=== PATIENT | female | born 1990 | race Caucasian/White ===

== ENCOUNTER 2016-12-14 17:25 | Emergency (ER) | payer MEDICAID ==
[2016-12-14 18:09] VITALS: BP 104/63
--- NOTE | 2016-12-14 18:23 | UC ---
Knee Pain HPI - HPI Summary HPI Summary: 26 yo female with progressively worsening right knee pain x 1 week no trauma feels swollen knee gives away now with right ankle pain - History of Current Complaint Chief Complaint: UCLowerExtremity Stated Complaint: RIGHT KNEE/ANKLE PAIN Time Seen by Provider: 12/14/16 18:15 Hx Last Menstrual Period: 11/22/16 Onset/Duration: Gradual Onset, Lasting Weeks - 1 Severity Initially: Mild Severity Currently: Moderate Pain Intensity: 6 Pain Scale Used: 0-10 Numeric Character: Dull, Aching Aggravating Factor(s): Movement, Weight Bearing Alleviating Factor(s): Rest Associated Signs And Symptoms: Positive: Swelling Able to Bear Weight: Yes - with marked limp - Risk Factors Septic Arthritis Risk Factor: Negative Gout Risk Factor: Negative - Allergies/Home Medications Allergies/Adverse Reactions: Allergies Allergy/AdvReac Type Severity Reaction Status Date / Time Morphine Allergy Intermediate Hives Verified 12/14/16 17:59 Home Medications: Home Medications Cyclobenzaprine TAB* [Flexeril 10 MG TAB*] 10 mg PO TID PRN 12/14/16 [History Confirmed 12/14/16] Ibuprofen TAB* [Motrin TAB* 800 MG] 800 mg PO Q8H PRN 12/14/16 [History Confirmed 12/14/16] PMH/Surg Hx/FS Hx/Imm Hx Previously Healthy: Yes - Surgical History Surgical History: None - Family History Known Family History: Positive: Hypertension - father, Diabetes - paternal side- uncle Negative: Cardiac Disease, Respiratory Disease - Social History Alcohol Use: None Alcohol Amount: 3 per weekend Substance Use Type: None Smoking Status (MU): Heavy Every Day Tobacco Smoker Type: Cigarettes Amount Used/How Often: 1/2 PPD Household Exposure Type: Cigarettes - Immunization History Most Recent Influenza Vaccination: no Review of Systems Constitutional: Negative Skin: Negative Eyes: Negative ENT: Negative Respiratory: Negative Cardiovascular: Negative Gastrointestinal: Negative Genitourinary: Negative Motor: Negative Neurovascular: Negative Musculoskeletal: Arthralgia Neurological: Negative Psychological: Negative All Other Systems Reviewed And Are Negative: Yes Physical Exam Triage Information Reviewed: Yes Appearance: Well-Appearing, No Pain Distress, Well-Nourished Vital Signs: Initial Vital Signs Temp 98.0 F 12/14/16 18:01 Pulse 70 12/14/16 18:01 Resp 16 04/12/17 18:01 BP 104/63 12/14/16 18:01 Pulse Ox 99 12/14/16 18:01 Vital Signs Reviewed: Yes Eyes: Positive: Conjunctiva Clear ENT: Positive: Hearing grossly normal. Negative: Nasal congestion, Nasal drainage Neck: Positive: Nontender, No Lymphadenopathy Respiratory: Positive: Lungs clear, Normal breath sounds, No respiratory distress, No accessory muscle use Cardiovascular: Positive: RRR, No Murmur Musculoskeletal: Positive: Other: - see image Neurological: Positive: Alert Psychological Exam: Normal Skin Exam: Normal Knee Pain Course/Dx - Course Course Of Treatment: xrays (-) - Differential Dx/Diagnosis Provider Diagnoses: right knee pain ? etiology? tendonitis vs other. right ankle pain ? ganglion cyst vs other Discharge - Discharge Plan Condition: Stable Disposition: HOME Prescriptions: HYDROcodone/ACETAMIN 5-325 MG* [[place] 5-325 TAB*] 1 tab PO Q4H PRN #10 tab MDD 2 PRN Reason: Pain - Severe Naproxen [Naproxen 500 MG TABS] 500 mg PO BID PRN #30 tab PRN Reason: Pain Patient Education Materials: Ganglion Cysts (ED), Knee Pain (ED), Tendinitis ( ED) Forms: *Work Release Referrals: Jl Meek MD [Medical Doctor] - 1 Day Additional Instructions: rest elevate knee imobilizer when wt bearing Images Front/Back of Body, Lg ([place]): 1 - tender inferior patella/patellar tendon/tibial tubercle/skin intact, no erthyema or warmth 2 - mobile cystic mass. tender lat mall
--- NOTE | 2016-12-14 18:54 | RAD ---
Indication: Right ankle pain. 3 views of the right ankle demonstrate soft tissue swelling laterally. Ankle mortise is intact. IMPRESSION: Soft tissue swelling without evidence of fracture.
--- NOTE | 2016-12-14 18:59 | RAD ---
Indication: Right knee pain. 4 views of the right knee demonstrates no fracture. No joint effusion is identified. IMPRESSION: No fracture of the right knee is noted.
== END 2016-12-14 19:32 | disposition home or self-care (01) ==
LOC: UCCORT 17:25
DX: M25.561 Pain in right knee (principal); M25.571 Pain in right ankle and joints of right foot; F17.210 Nicotine dependence, cigarettes, uncomplicated
CPT/HCPCS: 99213; G0463

== ENCOUNTER 2017-04-12 19:18 | Emergency (ER) | payer OTHER ==
[2017-04-12 19:25] VITALS: BP 139/78
--- NOTE | 2017-04-12 19:57 | UC ---
Ear Complaint HPI - HPI Summary HPI Summary: pt presents with c/o of inability to hear out of left ear. Pt is concerned that she has cerumen impaction. - History of Current Complaint Chief Complaint: UCEar Stated Complaint: EARS PLUGGED Time Seen by Provider: 04/12/17 19:25 Hx Obtained From: Patient Hx Last Menstrual Period: 03/13/17 ?: No Onset/Duration: Gradual Onset, Lasting Days, Still Present, Worse Since - onset Severity Initially: Mild Severity Currently: Mild Aggravating Factors: Nothing Alleviating Factors: Nothing Associated Signs/Symptoms: Positive: Hearing Loss, Foreign Body Sensation - Allergies/Home Medications Allergies/Adverse Reactions: Allergies Allergy/AdvReac Type Severity Reaction Status Date / Time Morphine Allergy Intermediate Hives Verified 04/12/17 19:25 PMH/Surg Hx/FS Hx/Imm Hx Previously Healthy: Yes - Surgical History Surgical History: None - Family History Known Family History: Positive: Hypertension - father, Diabetes - paternal side- uncle Negative: Cardiac Disease, Respiratory Disease - Social History Occupation: Employed Full-time Lives: With Family Alcohol Use: None Alcohol Amount: 3 per weekend Substance Use Type: None Smoking Status (MU): Heavy Every Day Tobacco Smoker Type: Cigarettes Amount Used/How Often: 1 PPD Have You Smoked in the Last Year: Yes Household Exposure Type: Cigarettes - Immunization History Most Recent Influenza Vaccination: no Review of Systems Constitutional: Negative Skin: Negative Eyes: Negative ENT: Other - lose of hearin gin left ear Respiratory: Negative Cardiovascular: Negative Gastrointestinal: Negative Genitourinary: Negative Motor: Negative Neurovascular: Negative Musculoskeletal: Negative Neurological: Negative Psychological: Negative All Other Systems Reviewed And Are Negative: Yes Physical Exam Triage Information Reviewed: Yes Appearance: Well-Appearing Vital Signs: Initial Vital Signs Temp 98.7 F 04/12/17 19:21 Pulse 99 04/12/17 19:21 Resp 14 04/12/17 19:21 BP 139/78 04/12/17 19:21 Pulse Ox 100 04/12/17 19:21 Vital Signs Reviewed: Yes Eye Exam: Normal ENT Exam: Other ENT: Positive: Other: - cerumen bilateral bilateral ear irrigation, large amount of cerumen removed from left ear. Dental Exam: Normal Neck exam: Normal Respiratory Exam: Normal Cardiovascular Exam: Normal Musculoskeletal Exam: Normal Neurological Exam: Normal Psychological Exam: Normal Skin Exam: Normal Ear Complaint Course/Dx - Differential Dx/Diagnosis Differential Diagnosis/HQI/PQRI: Cerumen Impaction Provider Diagnoses: cerumen impaction left ear. cerumen removal left ear Discharge - Discharge Plan Condition: Stable Disposition: HOME Patient Education Materials: Cerumen Impaction (ED) Referrals: LIZ Parikh [Primary Care Provider] - If Needed
== END 2017-04-12 19:59 | disposition home or self-care (01) ==
LOC: UCCORT 19:18
DX: H61.22 Impacted cerumen, left ear (principal); Z88.5 Allergy status to narcotic agent; F17.210 Nicotine dependence, cigarettes, uncomplicated
CPT/HCPCS: 99211; G0463

== ENCOUNTER 2017-06-25 13:23 | Emergency (ER) | payer OTHER | END 2017-06-25 13:42 | disposition left against medical advice (07) | LOC: UCCORT 13:23 | DX: K08.9 Disorder of teeth and supporting structures, unspecified (principal); Z53.21 Procedure and treatment not carried out due to patient leaving prior to being seen by health care provider ==

== ENCOUNTER 2017-07-19 21:45 | Emergency (ER) | payer OTHER ==
--- NOTE | 2017-07-19 22:15 | UC ---
Lower Extremity/Ankle HPI - HPI Summary HPI Summary: 26 YEAR OLD FEMALE PRESENTS WITH LEFT ANKLE PAIN SECONDARY [place] A FALL. - History of Current Complaint Stated Complaint: LEFT ANKLE INJURY Time Seen by Provider: 07/19/17 22:03 Hx Obtained From: Patient Hx Last Menstrual Period: 03/13/17 Onset/Duration: Sudden Onset Severity Initially: Moderate Severity Currently: Moderate Pain Scale Used: 0-10 Numeric - 8 - Allergies/Home Medications Allergies/Adverse Reactions: Allergies Allergy/AdvReac Type Severity Reaction Status Date / Time Morphine Allergy Intermediate Hives Verified 04/12/17 19:25 PMH/Surg Hx/FS Hx/Imm Hx Previously Healthy: Yes - Surgical History Surgical History: None - Family History Known Family History: Positive: Hypertension - father, Diabetes - paternal side- uncle Negative: Cardiac Disease, Respiratory Disease - Social History Alcohol Use: None Alcohol Amount: 3 per weekend Substance Use Type: None Smoking Status (MU): Heavy Every Day Tobacco Smoker Type: Cigarettes Amount Used/How Often: 1 PPD Have You Smoked in the Last Year: Yes Household Exposure Type: Cigarettes - Immunization History Most Recent Influenza Vaccination: no Review of Systems Constitutional: Negative Skin: Negative Eyes: Negative ENT: Negative Respiratory: Negative Cardiovascular: Negative Gastrointestinal: Negative Genitourinary: Negative Motor: Negative Neurovascular: Negative Musculoskeletal: Other: - LEFT ANKLE PAIN/SWELLING Neurological: Negative Psychological: Negative All Other Systems Reviewed And Are Negative: Yes Physical Exam Triage Information Reviewed: Yes Vital Signs Reviewed: Yes Eye Exam: Normal ENT Exam: Normal Dental Exam: Normal Neck exam: Normal Neck: Positive: 1 Respiratory Exam: Normal Cardiovascular Exam: Normal Abdominal Exam: Normal Musculoskeletal: Positive: Other: - LEFT ANKLE PAIN/SWELLING Neurological Exam: Normal Psychological Exam: Normal Skin Exam: Normal Lower Extremity Course/Dx - Differential Dx/Diagnosis Provider Diagnoses: LEFT ANKLE PAIN/SWELLING Discharge - Discharge Plan Condition: Stable Disposition: HOME Prescriptions: Meloxicam [Mobic] 7.5 mg PO BID PC #30 tab Patient Education Materials: Ankle Sprain (ED) Forms: *Work Release Referrals: LIZ Parikh [Primary Care Provider] - Jl Meek MD [Medical Doctor] -
[2017-07-19] MEDS ORDERED: Ibuprofen TAB* 400 MG PO ONE (22:24)
[2017-07-19 23:00] VITALS: BP 109/77
--- NOTE | 2017-07-20 07:29 | RAD ---
INDICATION: Left ankle injury. TECHNIQUE: 3 views of the left ankle were obtained. FINDINGS: Soft tissue swelling is noted along the anterolateral aspect of the ankle. No fracture is seen. Joint spaces appear maintained. 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 IMPRESSION: SOFT TISSUE SWELLING, NO FRACTURE IS SEEN. IF THE PATIENT'S SYMPTOMS PERSIST RECOMMEND FOLLOW-UP IMAGING.
== END 2017-07-19 23:10 | disposition home or self-care (01) ==
LOC: UCCORT 21:45
DX: M25.572 Pain in left ankle and joints of left foot (principal); M25.472 Effusion, left ankle; W19.XXXA Unspecified fall, initial encounter; Y93.9 Activity, unspecified; Y92.9 Unspecified place or not applicable; Y99.9 Unspecified external cause status; Z72.0 Tobacco use
CPT/HCPCS: 99213; A9270-GY; G0463

== ENCOUNTER 2018-08-24 11:18 | Emergency (ER) | payer OTHER ==
[2018-08-24 12:10] VITALS: BP 115/69
--- NOTE | 2018-08-24 12:28 | UC ---
Back Pain HPI - HPI Summary HPI Summary: history of lower back pain x 1 month s/p work injury one month ago pt. is pain free not , requesting the form to be filled out for her to return back to work without any limitations - History of Current Complaint Chief Complaint: UCGeneralIllness Stated Complaint: WC LOWER BACK PAIN Time Seen by Provider: 08/24/18 12:14 Hx Obtained From: Patient Hx Last Menstrual Period: currently ?: No Onset/Duration: Sudden Onset, Lasting Days - 30, Resolved Timing: Constant Severity Initially: Severe Severity Currently: None Pain Intensity: 0 Back Pain: Is Discrete @ - lower back pain Character: Aching Aggravating Factor(s): Movement, Lifting, Bending, Walking Alleviating Factor(s): Nothing Associated Signs And Symptoms: Positive: Negative - Allergies/Home Medications Allergies/Adverse Reactions: Allergies Allergy/AdvReac Type Severity Reaction Status Date / Time morphine Allergy Intermediate Hives Verified 08/24/18 12:10 PMH/Surg Hx/FS Hx/Imm Hx - Additional Past Medical History Additional PMH: anxiety disorder, breast lumps-pt is being evaluated 07/2017 SPINAL STENOSIS - Surgical History Surgical History: None - Family History Known Family History: Positive: Hypertension - father, Diabetes - paternal side- uncle Negative: Cardiac Disease, Respiratory Disease - Social History Alcohol Use: None Alcohol Amount: 3 per weekend Substance Use Type: None Smoking Status (MU): Heavy Every Day Tobacco Smoker Type: Cigarettes Amount Used/How Often: 1 PPD Have You Smoked in the Last Year: Yes Household Exposure Type: Cigarettes - Immunization History Most Recent Influenza Vaccination: no Review of Systems All Other Systems Reviewed And Are Negative: Yes Constitutional: Positive: Negative Skin: Positive: Negative Eyes: Positive: Negative ENT: Positive: Negative Respiratory: Positive: Negative Is Patient Immunocompromised?: No Physical Exam Triage Information Reviewed: Yes Appearance: Well-Appearing, No Pain Distress, Well-Nourished Vital Signs: Initial Vital Signs Temp 98.2 F 08/24/18 12:07 Pulse 108 08/24/18 12:07 Resp 18 08/24/18 12:07 BP 115/69 08/24/18 12:07 Pulse Ox 99 08/24/18 12:07 Vital Signs Reviewed: Yes Eye Exam: Normal Eyes: Positive: Conjunctiva Clear ENT: Positive: Normal ENT inspection, Hearing grossly normal, Pharynx normal Neck: Positive: Supple, Nontender, No Lymphadenopathy Respiratory: Positive: Chest non-tender, Lungs clear, Normal breath sounds Cardiovascular: Positive: RRR, No Murmur, Pulses Normal Abdominal Exam: Normal Abdomen Description: Positive: Nontender, No Organomegaly, Soft Bowel Sounds: Positive: Present Musculoskeletal Exam: Normal Musculoskeletal: Positive: Strength Intact, ROM Intact Skin Exam: Normal UC Physical Exam Vital Signs On Initial Exam: Initial Vitals Temp Pulse Resp BP Pulse Ox 98.2 F 108 18 115/69 99 08/24/18 12:07 08/24/18 12:07 08/24/18 12:07 08/24/18 12:07 08/24/18 12:07 - Back Exam Back Exam: normal inspection, no vertebral tenderness Back Pain Course/Dx - Differential Dx/Diagnosis Provider Diagnosis: Back strain Discharge - Sign-Out/Discharge Documenting (check all that apply): Patient Departure All imaging exams completed and their final reports reviewed: No Studies - Discharge Plan Condition: Stable Disposition: HOME Patient Education Materials: Lower Back Exercises (ED) Referrals: Carrie Rinaldi MD [Primary Care Provider] - If Needed - Billing Disposition and Condition Condition: STABLE Disposition: Home
== END 2018-08-24 12:33 | disposition home or self-care (01) ==
LOC: UCCORT 11:18
DX: S39.012D Strain of muscle, fascia and tendon of lower back, subsequent encounter (principal); X58.XXXD Exposure to other specified factors, subsequent encounter; Z88.5 Allergy status to narcotic agent; F17.210 Nicotine dependence, cigarettes, uncomplicated
CPT/HCPCS: 99211; G0463

== ENCOUNTER 2018-09-21 15:28 | Emergency (ER) | payer OTHER ==
[2018-09-21 15:44] VITALS: BP 121/70
--- NOTE | 2018-09-21 16:46 | UC ---
FLU HPI - HPI Summary HPI Summary: Pt c/o sudden onset of cough, chills, malaise, nasal congestion X 2-3 days. - History of Current Complaint Chief Complaint: UCGeneralIllness Stated Complaint: COUGH,FEVER,WEAK Time Seen by Provider: 09/21/18 16:20 Hx Obtained From: Patient Hx Last Menstrual Period: 08/13/18 ?: No Onset/Duration: Sudden Onset, Lasting Days, Still Present Severity Currently: Mild Severity Initially: Moderate Pain Intensity: 0 Associated Signs & Symptoms: Positive: Myalgia, Cough, Sore Throat, Nasal Congestion, Headache Related Hx: Possible Flu/Infectious Exposure - Risk Factors Influenza Risk Factors: Negative - Allergy/Home Medications Allergies/Adverse Reactions: Allergies Allergy/AdvReac Type Severity Reaction Status Date / Time morphine Allergy Intermediate Hives Verified 09/21/18 15:44 Home Medications: Home Medications D-Methorphan/PE/Acetaminophen [Day Time Cold-Flu Liquid] 237 ml PO DAILY [History Confirmed 09/21/18] PMH/Surg Hx/FS Hx/Imm Hx Previously Healthy: Yes - Surgical History Surgical History: None - Family History Known Family History: Positive: Hypertension - father, Diabetes - paternal side- uncle Negative: Cardiac Disease, Respiratory Disease - Social History Occupation: Employed Full-time Lives: With Family Alcohol Use: None Alcohol Amount: 3 per weekend Substance Use Type: None Smoking Status (MU): Heavy Every Day Tobacco Smoker Type: Cigarettes Amount Used/How Often: 1 PPD Have You Smoked in the Last Year: Yes Household Exposure Type: Cigarettes - Immunization History Most Recent Influenza Vaccination: no Review of Systems All Other Systems Reviewed And Are Negative: Yes Constitutional: Positive: Negative Skin: Positive: Negative Eyes: Positive: Negative ENT: Positive: Sinus Congestion Respiratory: Positive: Cough Cardiovascular: Positive: Negative Gastrointestinal: Positive: Negative Genitourinary: Positive: Negative Motor: Positive: Negative Neurovascular: Positive: Negative Musculoskeletal: Positive: Negative Neurological: Positive: Negative Psychological: Positive: Negative Is Patient Immunocompromised?: No Physical Exam Triage Information Reviewed: Yes Appearance: Ill-Appearing Vital Signs: Initial Vital Signs Temp 97.9 F 09/21/18 15:40 Pulse 63 09/21/18 15:40 Resp 16 09/21/18 15:40 BP 121/70 09/21/18 15:40 Pulse Ox 100 09/21/18 15:40 Vital Signs Reviewed: Yes Eye Exam: Normal ENT: Positive: TM bulging - right TM, TM red - right TM Dental Exam: Normal Neck exam: Normal Respiratory Exam: Normal Cardiovascular Exam: Normal Musculoskeletal Exam: Normal Neurological Exam: Normal Psychological Exam: Normal Skin Exam: Normal Flu Course/Dx - Differential Dx/Diagnosis Differential Diagnosis/HQI/PQRI: Influenza, RSV, Upper Respiratory Infection Provider Diagnosis: Right otitis media Discharge - Sign-Out/Discharge Documenting (check all that apply): Patient Departure All imaging exams completed and their final reports reviewed: No Studies - Discharge Plan Condition: Stable Disposition: HOME Prescriptions: Amoxicillin PO (*) [Amoxicillin 500 MG CAP*] 500 mg PO Q12H #20 cap Patient Education Materials: Ear Infection (ED) Referrals: Carrie Rinaldi MD [Primary Care Provider] - If Needed - Billing Disposition and Condition Condition: STABLE Disposition: Home
== END 2018-09-21 17:09 | disposition home or self-care (01) ==
LOC: UCCORT 15:28
DX: H66.91 Otitis media, unspecified, right ear (principal); Z88.5 Allergy status to narcotic agent; F17.210 Nicotine dependence, cigarettes, uncomplicated
CPT/HCPCS: 99212; G0463

== ENCOUNTER 2018-10-19 15:38 | Emergency (ER) | payer OTHER ==
[2018-10-19 16:40] VITALS: BP 122/69
--- NOTE | 2018-10-19 16:55 | UC ---
Skin Complaint HPI - HPI Summary HPI Summary: pt presents with c/o worsening pain of scalp and crown of head. Pt reports that she had a cyst removed and same spot as a child. Denies recent injury or infection - History of Current Complaint Chief Complaint: UCSkin Time Seen by Provider: 10/19/18 16:34 Stated Complaint: SKIN CONCERN Hx Obtained From: Patient Hx Last Menstrual Period: now ?: No Onset/Duration: Gradual Onset, Still Present Skin Exposure Onset/Duration: Weeks Ago Timing: Constant Onset Severity: Mild Current Severity: Moderate Pain Intensity: 5 Location: Discrete Character: Pain Aggravating Factor(s): Touch Alleviating Factor(s): Nothing Associated Signs & Symptoms: Positive: Tenderness - Allergy/Home Medications Allergies/Adverse Reactions: Allergies Allergy/AdvReac Type Severity Reaction Status Date / Time morphine Allergy Intermediate Hives Verified 10/19/18 16:25 Home Medications: Home Medications Acetaminophen [Acetaminophen Extra Strength] 100 mg PO ONCE PRN 10/19/18 [ History Confirmed 10/19/18] PMH/Surg Hx/FS Hx/Imm Hx Previously Healthy: Yes - Surgical History Surgical History: None - Family History Known Family History: Positive: Hypertension - father, Diabetes - paternal side- uncle Negative: Cardiac Disease, Respiratory Disease - Social History Occupation: Employed Full-time Lives: With Family Alcohol Use: None Alcohol Amount: 3 per weekend Substance Use Type: None Smoking Status (MU): Current Some Day Smoker Type: Cigarettes Amount Used/How Often: 1 PPD Have You Smoked in the Last Year: Yes Household Exposure Type: Cigarettes - Immunization History Most Recent Influenza Vaccination: no Review of Systems All Other Systems Reviewed And Are Negative: Yes Constitutional: Positive: Negative Skin: Positive: Other - tenderness Eyes: Positive: Negative ENT: Positive: Negative Respiratory: Positive: Negative Cardiovascular: Positive: Negative Gastrointestinal: Positive: Negative Genitourinary: Positive: Negative Motor: Positive: Negative Neurovascular: Positive: Negative Musculoskeletal: Positive: Negative Neurological: Positive: Negative Psychological: Positive: Negative Is Patient Immunocompromised?: No Physical Exam Triage Information Reviewed: Yes Appearance: Well-Appearing Vital Signs: Initial Vital Signs Temp 97.7 F 10/19/18 16:30 Pulse 96 10/19/18 16:30 Resp 20 10/19/18 16:30 BP 122/69 10/19/18 16:30 Pulse Ox 100 10/19/18 16:30 Vital Signs Reviewed: Yes Eye Exam: Normal ENT Exam: Normal Dental Exam: Normal Neck exam: Normal Respiratory Exam: Normal Cardiovascular Exam: Normal Musculoskeletal Exam: Normal Neurological Exam: Normal Psychological Exam: Normal Skin Exam: Other - jonathan size tender area at center of crown of scalp. No erytheam no flucuant mass, no palpable cyst. Course/Dx - Course Course Of Treatment: pt stated she was going to go to ER afte visit at - Differential Diagnoses - Skin Complaint Differential Diagnoses: Abscess - Diagnoses Provider Diagnosis: Scalp tenderness Discharge - Sign-Out/Discharge Documenting (check all that apply): Patient Departure All imaging exams completed and their final reports reviewed: No Studies - Discharge Plan Condition: Stable Disposition: HOME Patient Education Materials: Cyst (ED) Referrals: Carrie Rinaldi MD [Primary Care Provider] - As Soon As Possible Additional Instructions: PLEASE FOLLOW UP WITH YOUR PCP SOON POSSIBLE. - Billing Disposition and Condition Condition: STABLE Disposition: Home - Attestation Statements Provider Attestation: Per institutional requirements, I have reviewed the chart, however, I was not consulted specifically or made aware of this patient by the midlevel provider. I did not personally evaluate, interact with , or disposition this patient.
== END 2018-10-19 17:00 | disposition home or self-care (01) ==
LOC: UCCORT 15:38
DX: R51 Headache (principal); F17.210 Nicotine dependence, cigarettes, uncomplicated; Z88.5 Allergy status to narcotic agent
CPT/HCPCS: 99211; G0463

== ENCOUNTER 2019-01-11 12:40 | Emergency (ER) | payer MEDICAID, OTHER ==
[2019-01-11 13:01] VITALS: BP 123/73
--- NOTE | 2019-01-11 13:16 | UC ---
Throat Pain/Nasal Asif HPI - HPI Summary HPI Summary: 28-year-old woman comes in with a chief complaint of ear pain and sinusitis symptoms. 3 days ago patient started with right ear pain and feeling of fluttering in the right ear that was intermittent. Now her sinuses feel full and she's having a hard time sleeping because of these sinus congestion. She does have a dry cough associated with it. No complaint of any shortness of breath. The fluttering in the right ear went away yesterday and she has not had any today. She does not believe is any foreign body in her. Today she is also having pressure in the left ear. She took some [id number] medicine which did help briefly with the symptoms. - History of Current Complaint Chief Complaint: UCHeadache Stated Complaint: BILATERAL EAR PAIN,HEADACHE Time Seen by Provider: 01/11/19 13:03 Hx Last Menstrual Period: 12/18/18 Pain Intensity: 3 - Allergies/Home Medications Allergies/Adverse Reactions: Allergies Allergy/AdvReac Type Severity Reaction Status Date / Time morphine Allergy Intermediate Hives Verified 01/11/19 12:58 PMH/Surg Hx/FS Hx/Imm Hx Previously Healthy: Yes - Surgical History Surgical History: Yes Surgery Procedure, Year, and Place: scalp cyst removed - Family History Known Family History: Positive: Hypertension - father, Diabetes - paternal side- uncle Negative: Cardiac Disease, Respiratory Disease - Social History Alcohol Use: Occasionally Alcohol Amount: 3 per weekend Substance Use Type: None Smoking Status (MU): Current Some Day Smoker Type: Cigarettes Amount Used/How Often: 5 cigarettes Have You Smoked in the Last Year: Yes Household Exposure Type: Cigarettes - Immunization History Most Recent Influenza Vaccination: no Review of Systems All Other Systems Reviewed And Are Negative: Yes Constitutional: Positive: Chills Skin: Positive: Negative Eyes: Positive: Negative ENT: Positive: Ear Ache, Nasal Discharge, Sinus Congestion Respiratory: Positive: Cough Cardiovascular: Positive: Negative Gastrointestinal: Positive: Negative Motor: Positive: Negative Neurovascular: Positive: Negative Musculoskeletal: Positive: Negative Neurological: Positive: Negative Psychological: Positive: Negative Is Patient Immunocompromised?: No Physical Exam Triage Information Reviewed: Yes Appearance: Well-Appearing, No Pain Distress, Well-Nourished Vital Signs: Initial Vital Signs Temp 98.9 F 01/11/19 12:53 Pulse 88 01/11/19 12:53 Resp 16 01/11/19 12:53 BP 123/73 01/11/19 12:53 Pulse Ox 100 01/11/19 12:53 Vital Signs Reviewed: Yes Eye Exam: Normal Eyes: Positive: Conjunctiva Clear ENT: Positive: Pharyngeal erythema, Nasal congestion, Nasal drainage, TM dull - rt Neck: Positive: Supple Respiratory: Positive: Lungs clear, Normal breath sounds, No respiratory distress Cardiovascular: Positive: RRR Musculoskeletal Exam: Normal Musculoskeletal: Positive: Strength Intact, ROM Intact Neurological Exam: Normal Neurological: Positive: Alert, Muscle Tone Normal Psychological Exam: Normal Psychological: Positive: Age Appropriate Behavior Skin Exam: Normal Throat Pain/Nasal Course/Dx - Course Course Of Treatment: DISCUSSED VIRAL VERSES BACTERIAL INFECTION AND THE ROLE OF ANTIBIOTICS. THE PATIENT PREFERS TO BE ON ANTIBIOTICS AT THIS TIME. - Differential Dx/Diagnosis Provider Diagnosis: Sinusitis, Serous otitis media Discharge - Sign-Out/Discharge Documenting (check all that apply): Patient Departure All imaging exams completed and their final reports reviewed: No Studies - Discharge Plan Condition: Stable Disposition: HOME Prescriptions: Amoxicillin PO (*) [Amoxicillin 875 MG (*)] 875 mg PO BID #20 tab Patient Education Materials: Sinusitis (ED), Serous Otitis Media (ED) Forms: *Work Release Referrals: Carrie Rinaldi MD [Primary Care Provider] - Additional Instructions: FOLLOW UP WITH YOUR DOCTOR IF NOT COMPLETELY IMPROVED. GET RECHECKED SOONER IF YOUR CONDITION WORSENS OR ANY QUESTIONS OR CONCERNS. - Billing Disposition and Condition Condition: STABLE Disposition: Home
== END 2019-01-11 13:21 | disposition home or self-care (01) ==
LOC: UCCORT 12:40
DX: J32.9 Chronic sinusitis, unspecified (principal); H66.91 Otitis media, unspecified, right ear; F17.210 Nicotine dependence, cigarettes, uncomplicated; Z88.5 Allergy status to narcotic agent
CPT/HCPCS: 99212; G0463

== ENCOUNTER 2019-04-10 12:48 | Emergency (ER) | payer MEDICAID, OTHER ==
--- OUTSIDE RECORDS SUMMARY | 2019-04-10 12:58 | XMS REPORT | Continuity of Care Document ---
:1990 External Reference #:[id number] Author Name Safia Lam MD Address [address] [place] [address] Care Team Providers Name Role Phone Carrie Rinaldi MD Care Team Information Label Printer Unavailable Carrie Rinaldi MD Primary Care Physician Unavailable Payers Date Identification Numbers Payment Provider Subscriber Onset: 2019 Policy Number: [id number] [facility] Insurance Radha Sheppard [employer] PayID: [id number] [place] [id number] Expires: 2019 Policy Number: [id number] Medicaid Radha Sheppard PayID: [id number] [place], [place] [id number] Social History Type Date Description Comments Sex Unknown Marital Status Single 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 Tobacco Use Start: Unknown Light tobacco smoker (10 or fewer cigarettes/day) ETOH Use Denies alcohol use Tobacco Use Start: Unknown Light tobacco smoker (10 or fewer also Vapes cigarettes/day) Recreational Drug Use Denies Drug Use Allergies, Adverse Reactions, Alerts Active Allergies Reaction Severity Comments Date Morphine hives, arm pain 03/18/2019 Medications Active Medications SIG Qnty Indications Ordering Provider Date Diclofenac Sodium take 1 tablet by 60tabs Safia Lam, 03/18/2019 75mg mouth twice daily MD Tablets DR with food Tizanidine HCL 1 tab by mouth 30tabs Safia Lam, 03/18/2019 4mg three times a day MD Tablets as needed for muscle spasms Gabapentin take 2 capsules Unknown 400mg by mouth three Capsules times a day Clonazepam take 1 tablet by Unknown 1mg Tablets mouth twice a day maximum daily dose of 2 Tylenol Extra 1 tabs by mouth Unknown Strength every 4 hours as 500mg Tablets needed History Medications Ibuprofen take 1 tablet by mouth Unknown - 03/18/2019 600mg Tablets three times a day if needed for pain Vital Signs Date Vital Result Comment 03/18/2019 1:48pm BP Systolic Sitting Left Arm 116 mmHg BP Diastolic Sitting Left Arm 72 mmHg Body Temperature 98.0 F Heart Rate 79 /min Weight 250.00 lb O2 % BldC Oximetry 96 % Procedures Date Code Description Status 06/16/2014 24052 EKG Interpretation And Report Only Completed Plan of Treatment Future Appointment(s):04/24/2019 10:30 am - Dominique Porter MD at [facility] Medicine [facility] Infectious Vbljmht0104/15/2019 2:00 pm - Tiff Capps, [facility] at Orthopaedic [id number]/18/2019 - Tiff Capps, [id number] Pain in right shoulderNew Therapy:Physical [id number] Muscle spasm of backNew Therapy: Physical TherapyAllNew Medication:Diclofenac Sodium 75 mg - take 1 tablet by mouth twice daily with foodTizanidine HCL 4 mg - 1 tab by mouth three times a day as needed for muscle spasmsComments:I would like to get her started in physical therapy right away. I tried to make arrangements for trigger point injections prior to therapy but I am unable to coordinate her schedule with mine , nor am I able to get her into see Dr. Porter until April. I have given her a prescription for a muscle relaxer to use three times a day as needed. She is going to stop the ibuprofen and start taking diclofenac 75 mg twice a day. I would like her to use a heating pad on her neck and thoracic spine, ice on her right shoulder. I talked to her about a TENS unit as well. She does not have one but I suggestedshe look into getting one. She can take Tylenol as needed for breakthrough pain. I advised her against using any ibuprofen or naproxen in conjunction with the diclofenac. She states she cannot affordto be out of work. I gave her a note to return to work with a lifting restriction. I am going to reevaluate her in four weeks, sooner with any problems or concerns.Referral:Dominique Porter MD, Physical Medicine/Rehab
--- OUTSIDE RECORDS SUMMARY | 2019-04-10 12:58 | XMS REPORT | Continuity of Care Document ---
:1990 External Reference #:[id number] Author Name Lee Ann Nunez Care Team Providers Name Role Phone Carrie Rinaldi MD Care Team Information Rn Critical Care Unavailable Carrie Rinaldi MD Primary Care Physician Unavailable Payers Date Identification Numbers Payment Provider Subscriber Expires: 2019 Policy Number: [id number] Medicaid Radha Sheppard PayID: [id number] [address] [place] [address] Social History Type Date Description Comments Sex Unknown Procedures Date Code Description Status 06/16/2014 14880 EKG Interpretation And Report Only Completed
[2019-04-10 13:09] VITALS: BP 116/75
--- NOTE | 2019-04-10 13:29 | UC ---
Upper Extremity HPI - HPI Summary HPI Summary: Pt presents with c/o right upper mid clavicular and neck pain after moving a person in a mayte lift this morning. Pt states she had sudden onset of pain and reduced ROM - History of Current Complaint Chief Complaint: UCUpperExtremity Stated Complaint: WC RIGHT SHOULDER INJURY Time Seen by Provider: 04/10/19 13:23 Hx Obtained From: Patient Hx Last Menstrual Period: 04/09/19 ?: No Onset/Duration: Sudden Onset, Still Present Severity Initially: Severe Severity Currently: Severe Pain Intensity: 8 Location Of Pain: Is Diffuse - righ mandy anterior chest, neck and shoulder Character: Dull, Aching, Stiffness Aggravating Factor(s): Movement Alleviating Factor(s): Rest Associated Signs And Symptoms: Positive: Negative Related History: Dominant Hand Right - Risk Factors Non-Orthopedic Risk Factor: Negative DVT Risk Factors: Negative Septic Arthritis Risk Factor: Negative Compartment Syndrome Risk Factors: Pain - Allergies/Home Medications Allergies/Adverse Reactions: Allergies Allergy/AdvReac Type Severity Reaction Status Date / Time morphine Allergy Intermediate Hives Verified 04/10/19 13:04 PMH/Surg Hx/FS Hx/Imm Hx Previously Healthy: Yes - Surgical History Surgical History: Yes Surgery Procedure, Year, and Place: scalp cyst removed - Family History Known Family History: Positive: Hypertension - father, Diabetes - paternal side- uncle Negative: Cardiac Disease, Respiratory Disease - Social History Occupation: Employed Full-time Lives: With Family Alcohol Use: None Alcohol Amount: 3 per weekend Substance Use Type: None Smoking Status (MU): Heavy Every Day Tobacco Smoker Type: Cigarettes Amount Used/How Often: 1/2 PPD Length of Time of Smoking/Using Tobacco: Since Age 11 Have You Smoked in the Last Year: Yes Household Exposure Type: Cigarettes - Immunization History Most Recent Influenza Vaccination: no Vaccination Up to Date: Yes Review of Systems All Other Systems Reviewed And Are Negative: Yes Constitutional: Positive: Negative Skin: Positive: Negative Eyes: Positive: Negative ENT: Positive: Negative Respiratory: Positive: Negative Cardiovascular: Positive: Negative Gastrointestinal: Positive: Negative Genitourinary: Positive: Negative Motor: Positive: Decreased ROM - right shoulder Neurovascular: Positive: Negative Musculoskeletal: Positive: Arthralgia, Decreased ROM - right shoulder, Myalgia Neurological: Positive: Negative Psychological: Positive: Negative Is Patient Immunocompromised?: No Physical Exam Triage Information Reviewed: Yes Appearance: Well-Appearing Vital Signs: Initial Vital Signs Temp 98.6 F 04/10/19 13:02 Pulse 76 04/10/19 13:02 Resp 20 04/10/19 13:02 BP 116/75 04/10/19 13:02 Pulse Ox 99 04/10/19 13:02 Vital Signs Reviewed: Yes Eye Exam: Normal ENT Exam: Normal ENT: Positive: Hearing grossly normal Dental Exam: Normal Neck exam: Normal Respiratory Exam: Normal Respiratory: Positive: No respiratory distress Musculoskeletal: Positive: Strength Limited @ - right shoulder, ROM Limited @ - right shoulder Neurological Exam: Normal Psychological Exam: Normal Skin Exam: Normal Upper Extremity Course/Dx - Differential Dx/Diagnosis Differential Diagnosis/HQI/PQRI: Strain, Sprain Provider Diagnosis: Right shoulder strain Discharge - Sign-Out/Discharge Documenting (check all that apply): Patient Departure All imaging exams completed and their final reports reviewed: No Studies - Discharge Plan Condition: Stable Disposition: HOME Patient Education Materials: Arthralgia (ED), Shoulder Pain (ED), Exercises for Shoulder Flexion and Extension (ED), Exercises for Internal and External Shoulder Rotation (ED), Exercises for Shoulder Abduction and Adduction (ED) Forms: *Work Release Referrals: Larry Holman MD [Medical Doctor] - As Soon As Possible Carrie Rinaldi MD [Primary Care Provider] - If Needed - Billing Disposition and Condition Condition: STABLE Disposition: Home
== END 2019-04-10 13:41 | disposition home or self-care (01) ==
LOC: UCCORT 12:48
DX: S46.911A Strain of unspecified muscle, fascia and tendon at shoulder and upper arm level, right arm, initial encounter (principal); X50.9XXA Other and unspecified overexertion or strenuous movements or postures, initial encounter; Y93.89 Activity, other specified; Y92.89 Other specified places as the place of occurrence of the external cause; Y99.0 Civilian activity done for income or pay; F17.210 Nicotine dependence, cigarettes, uncomplicated; Z88.5 Allergy status to narcotic agent
CPT/HCPCS: 99211; G0463

== ENCOUNTER 2019-07-04 13:50 | Emergency (ER) | payer OTHER ==
[2019-07-04 14:18] VITALS: BP 118/69
[2019-07-04 14:42] LABS: Influenza A Molecular NEGATIVE (Negative); Influenza B Molecular NEGATIVE (Negative)
--- NOTE | 2019-07-04 14:43 | UC ---
FLU HPI - HPI Summary HPI Summary: Pt presents c/o generalized malaise, night sweats, HERRERA, ST, nasal congestion, fatigue X 3 days. - History of Current Complaint Chief Complaint: UCGeneralIllness Stated Complaint: COUGH,CHILLS,ACHES Time Seen by Provider: 07/04/19 14:33 Hx Obtained From: Patient Hx Last Menstrual Period: 04/09/19 ?: No Onset/Duration: Sudden Onset, Lasting Days Severity Currently: Moderate Severity Initially: Severe Pain Intensity: 10 Associated Signs & Symptoms: Positive: Fever, Myalgia, Sore Throat, Nasal Congestion, Headache Related Hx: Possible Flu/Infectious Exposure - Risk Factors Influenza Risk Factors: Negative - Allergy/Home Medications Allergies/Adverse Reactions: Allergies Allergy/AdvReac Type Severity Reaction Status Date / Time morphine Allergy Intermediate Hives Verified 07/04/19 14:19 PMH/Surg Hx/FS Hx/Imm Hx Previously Healthy: Yes - Surgical History Surgical History: Yes Surgery Procedure, Year, and Place: scalp cyst removed - Family History Known Family History: Positive: Hypertension - father, Diabetes - paternal side- uncle Negative: Cardiac Disease, Respiratory Disease - Social History Occupation: Employed Full-time Lives: With Family Alcohol Use: Occasionally Alcohol Amount: 3 per weekend Substance Use Type: None Smoking Status (MU): Heavy Every Day Tobacco Smoker Type: Cigarettes Amount Used/How Often: 1/2 PPD Length of Time of Smoking/Using Tobacco: Since Age 11 Have You Smoked in the Last Year: Yes Household Exposure Type: Cigarettes - Immunization History Most Recent Influenza Vaccination: 07/01/19 Vaccination Up to Date: Yes Review of Systems All Other Systems Reviewed And Are Negative: Yes Constitutional: Positive: Fever, Chills, Fatigue Skin: Positive: Negative Eyes: Positive: Negative ENT: Positive: Sore Throat, Sinus Congestion Respiratory: Positive: Cough Cardiovascular: Positive: Negative Gastrointestinal: Positive: Negative Genitourinary: Positive: Negative Motor: Positive: Negative Neurovascular: Positive: Negative Musculoskeletal: Positive: Myalgia Neurological: Positive: Headache Psychological: Positive: Negative Is Patient Immunocompromised?: No Physical Exam Triage Information Reviewed: Yes Appearance: Ill-Appearing Vital Signs: Initial Vital Signs Temp 98.3 F 07/04/19 14:10 Pulse 66 07/04/19 14:10 Resp 18 07/04/19 14:10 BP 118/69 07/04/19 14:10 Pulse Ox 99 07/04/19 14:10 Vital Signs Reviewed: Yes Eye Exam: Normal ENT: Positive: Nasal congestion Dental Exam: Normal Neck exam: Normal Respiratory Exam: Normal Cardiovascular Exam: Normal Musculoskeletal Exam: Normal Neurological Exam: Normal Psychological Exam: Normal Skin Exam: Normal Flu Course/Dx - Differential Dx/Diagnosis Differential Diagnosis/HQI/PQRI: Influenza, Upper Respiratory Infection Provider Diagnosis: Viral syndrome Discharge ED - Sign-Out/Discharge Documenting (check all that apply): Patient Departure All imaging exams completed and their final reports reviewed: No Studies - Discharge Plan Condition: Stable Disposition: HOME Patient Education Materials: Viral Syndrome (ED) Forms: *Work Release Referrals: Carrie Rinaldi MD [Primary Care Provider] - If Needed - Billing Disposition and Condition Condition: STABLE Disposition: Home
== END 2019-07-04 14:51 | disposition home or self-care (01) ==
LOC: UCCORT 13:50
DX: B34.9 Viral infection, unspecified (principal); R53.81 Other malaise; R61 Generalized hyperhidrosis; R51 Headache; J02.9 Acute pharyngitis, unspecified; R09.81 Nasal congestion; R53.83 Other fatigue; M79.10 Myalgia, unspecified site; F17.210 Nicotine dependence, cigarettes, uncomplicated; Z88.5 Allergy status to narcotic agent
CPT/HCPCS: 99211; G0463